=== PATIENT | female | born 1965 | race Caucasian/White ===

== ENCOUNTER → 2021-02-20 | Outpatient (CLI) | payer OTHER ==
[~2021-02-20] MED LIST: CLINDAMYCIN HC300 MG PO; NKHM
== END | disposition home or self-care (01) ==
LOC: RESCLI 10:59
PROVIDERS: ATTEND Internal Medicine
DX: E66.9 Obesity, unspecified (principal); M19.90 Unspecified osteoarthritis, unspecified site; Z79.899 Other long term (current) drug therapy; Z98.890 Other specified postprocedural states

== ENCOUNTER → 2021-02-25 | Outpatient (CLI) | payer OTHER ==
[2021-02-25 06:32] LABS: BASO % 0.4 % (0.0-1.0); EOS # 0.3 10*3/uL (0.0-0.4); EOS % 3.5 % (1.0-4.0); LYMPH # 2.2 10*3/uL (1.3-4.4); LYMPH % 24.4 % (27.0-41.0); MEAN CELL VOLUME 99.8 fl (81.0-99.0); MEAN CORPUSCULAR HGB 32.4 pg (27.0-31.0); MEAN CORPUSCULAR HGB CONC 32.5 g/dl (33.0-37.0); MEAN PLATELET VOLUME 11.1 fl (9.6-12.3); MONO % 10.7 % (3.0-9.0); NEUT # 5.4 10*3/uL (2.3-7.9); NEUT % 60.6 % (47.0-73.0); PLATELET COUNT AUTOMATED 216 10*3/uL (130-400); RED BLOOD COUNT 5.21 10*6/uL (4.10-5.10); RED CELL DISTRI WIDTH 12.3 % (0-14.5); WHITE BLOOD COUNT 8.9 10*3/uL (4.8-10.8)
[2021-02-25 06:49] LABS: ALBUMIN 3.3 gm/dl (3.1-4.5); ALKALINE PHOSPHATASE 76 U/L (45-117); BUN 17 mg/dl (7-24); CHLORIDE 111 mmol/L (98-107); CHOLESTEROL 164 mg/dL (<200); CREATININE 0.91 mg/dL (0.55-1.02); LDL CHOLESTEROL 97 mg/dL (9-159); POTASSIUM 4.7 mmol/L (3.5-5.1); SGOT/AST 16 IU/L (3-35); SGPT/ALT 22 U/L (12-78); SODIUM 141 mmol/L (136-145); TOTAL PROTEIN 7.4 gm/dL (6.4-8.2); TRIGLYCERIDES 103 mg/dl (<150)
== END | disposition home or self-care (01) ==
LOC: LAB 05:38
PROVIDERS: ATTEND Internal Medicine
DX: E66.9 Obesity, unspecified (principal)

== ENCOUNTER → 2021-03-20 | Outpatient (CLI) | payer OTHER | END | disposition home or self-care (01) | LOC: ORTHO 00:48 | PROVIDERS: ATTEND Orthopaedic Surgery | DX: M17.0 Bilateral primary osteoarthritis of knee (principal) ==

== ENCOUNTER → 2021-07-16 | Outpatient (CLI) | payer OTHER ==
[2021-07-16 11:17] LABS: BASO # 0.1 10*3/uL (0.0-0.1); BASO % 0.6 % (0.0-1.0); EOS # 0.3 10*3/uL (0.0-0.4); HEMATOCRIT 51.9 % (37.0-47.0); LYMPH # 2.9 10*3/uL (1.3-4.4); MEAN CELL VOLUME 97.9 fl (81.0-99.0); MEAN CORPUSCULAR HGB 32.8 pg (27.0-31.0); MEAN CORPUSCULAR HGB CONC 33.5 g/dl (33.0-37.0); MEAN PLATELET VOLUME 11.1 fl (9.6-12.3); MONO # 1.1 10*3/uL (0.1-1.0); MONO % 10.9 % (3.0-9.0); NEUT # 5.6 10*3/uL (2.3-7.9); NEUT % 56.1 % (47.0-73.0); PLATELET COUNT AUTOMATED 215 10*3/uL (130-400); RED CELL DISTRI WIDTH 12.8 % (0-14.5); WHITE BLOOD COUNT 10.1 10*3/uL (4.8-10.8)
== END | disposition home or self-care (01) ==
LOC: RESCLI 01:04
PROVIDERS: Student in an Organized Health Care Education/Training Program; ATTEND Internal Medicine
DX: E66.01 Morbid (severe) obesity due to excess calories (principal); E55.9 Vitamin D deficiency, unspecified; M17.0 Bilateral primary osteoarthritis of knee; D75.1 Secondary polycythemia; R06.09 Other forms of dyspnea; Z79.899 Other long term (current) drug therapy; Z88.8 Allergy status to other drugs, medicaments and biological substances

== ENCOUNTER → 2022-02-15 | Outpatient (CLI) | payer OTHER ==
[2022-02-15 16:10] LABS: BASO # 0.1 10*3/uL (0.0-0.1); BASO % 0.7 % (0.0-1.0); EOS # 0.4 10*3/uL (0.0-0.4); EOS % 4.1 % (1.0-4.0); HEMATOCRIT 51.7 % (37.0-47.0); LYMPH # 3.1 10*3/uL (1.3-4.4); LYMPH % 28.6 % (27.0-41.0); MEAN CELL VOLUME 98.7 fl (81.0-99.0); MEAN CORPUSCULAR HGB 33.2 pg (27.0-31.0); MEAN CORPUSCULAR HGB CONC 33.7 g/dl (33.0-37.0); MEAN PLATELET VOLUME 10.7 fl (9.6-12.3); MONO # 1.2 10*3/uL (0.1-1.0); MONO % 10.9 % (3.0-9.0); NEUT # 5.9 10*3/uL (2.3-7.9); NEUT % 55.3 % (47.0-73.0); PLATELET COUNT AUTOMATED 260 10*3/uL (130-400); RED BLOOD COUNT 5.24 10*6/uL (4.10-5.10); RED CELL DISTRI WIDTH 12.7 % (0-14.5); WHITE BLOOD COUNT 10.7 10*3/uL (4.8-10.8)
[2022-02-15 16:30] LABS: BUN 12 mg/dl (7-24); CHLORIDE 110 mmol/L (98-107); CREATININE 0.89 mg/dL (0.55-1.02); SODIUM 141 mmol/L (136-145)
== END | disposition home or self-care (01) ==
LOC: LAB 14:59
PROVIDERS: ATTEND Student in an Organized Health Care Education/Training Program
DX: E88.81 Metabolic syndrome and other insulin resistance (principal); D75.1 Secondary polycythemia

== ENCOUNTER → 2022-09-01 | Outpatient (CLI) | payer OTHER | END | disposition home or self-care (01) | LOC: RESCLI 02:56 | PROVIDERS: ATTEND Internal Medicine | DX: E88.81 Metabolic syndrome and other insulin resistance (principal); M17.0 Bilateral primary osteoarthritis of knee; E59 Dietary selenium deficiency; D75.1 Secondary polycythemia; F17.210 Nicotine dependence, cigarettes, uncomplicated; Z98.890 Other specified postprocedural states; Z79.899 Other long term (current) drug therapy ==

== ENCOUNTER → 2023-10-19 | Outpatient (CLI) | payer OTHER | END | disposition home or self-care (01) | LOC: RESCLI 00:33 | PROVIDERS: ATTEND Internal Medicine | DX: E55.9 Vitamin D deficiency, unspecified (principal); E88.810 Metabolic syndrome; M17.0 Bilateral primary osteoarthritis of knee; E66.01 Morbid (severe) obesity due to excess calories; F17.210 Nicotine dependence, cigarettes, uncomplicated; R06.09 Other forms of dyspnea; Z79.899 Other long term (current) drug therapy; Z98.890 Other specified postprocedural states; Z82.49 Family history of ischemic heart disease and other diseases of the circulatory system ==

== ENCOUNTER → 2023-10-20 | Outpatient (CLI) | payer OTHER ==
[2023-10-20 11:15] LABS: BASO # 0.1 10*3/uL (0.0-0.1); BASO % 0.8 % (0.0-1.0); EOS # 0.3 10*3/uL (0.0-0.4); EOS % 2.7 % (1.0-4.0); HEMATOCRIT 54.3 % (37.0-47.0); LYMPH # 3.7 10*3/uL (1.3-4.4); LYMPH % 35.3 % (27.0-41.0); MEAN CELL VOLUME 100.6 fl (81.0-99.0); MEAN CORPUSCULAR HGB 33.3 pg (27.0-31.0); MEAN CORPUSCULAR HGB CONC 33.1 g/dl (33.0-37.0); MEAN PLATELET VOLUME 10.7 fl (9.6-12.3); MONO # 1.1 10*3/uL (0.1-1.0); MONO % 10.3 % (3.0-9.0); NEUT # 5.3 10*3/uL (2.3-7.9); NEUT % 50.4 % (47.0-73.0); PLATELET COUNT AUTOMATED 274 10*3/uL (130-400); RED CELL DISTRI WIDTH 12.9 % (0-14.5); WHITE BLOOD COUNT 10.6 10*3/uL (4.8-10.8)
[2023-10-20 11:42] LABS: ALKALINE PHOSPHATASE 70 U/L (46-116); BUN 13 mg/dl (9-23); CHLORIDE 104 mmol/L (98-107); CHOLESTEROL 195 mg/dL (<200); LDL CHOLESTEROL 113 mg/dL (9-159); POTASSIUM 4.2 mmol/L (3.4-5.1); SGPT/ALT 11 U/L (5-49); TRIGLYCERIDES 175 mg/dl (<150)
== END | disposition home or self-care (01) ==
LOC: LAB 09:20
PROVIDERS: ATTEND Student in an Organized Health Care Education/Training Program
DX: E55.9 Vitamin D deficiency, unspecified (principal); E66.01 Morbid (severe) obesity due to excess calories

== ENCOUNTER → 2023-11-22 | Outpatient (CLI) | payer OTHER ==
[~2023-11-22] MED LIST changes: +ALBUTEROL SULFAT4 M1 PO; +AUGMENTIN 500500 M1 PO; +CELEXA20 MG PO; +CITALOPRAM20 MG PO; +HYDROXYZINE PAM25 M1 PO; +IBU800 M2 PO; +LEVOFLOXACIN750 M2 PO; +METAMUCIL FIBE3.4 GM PO; +TRAMADOL HCL50 MG PO
[2023-11-22 14:31] LABS: BASO # 0.1 10*3/uL (0.0-0.1); BASO % 0.5 % (0.0-1.0); EOS # 0.3 10*3/uL (0.0-0.4); EOS % 3.2 % (1.0-4.0); HEMATOCRIT 49.2 % (37.0-47.0); LYMPH # 2.9 10*3/uL (1.3-4.4); LYMPH % 28.9 % (27.0-41.0); MEAN CELL VOLUME 98.4 fl (81.0-99.0); MEAN CORPUSCULAR HGB 32.6 pg (27.0-31.0); MEAN CORPUSCULAR HGB CONC 33.1 g/dl (33.0-37.0); MEAN PLATELET VOLUME 9.8 fl (9.6-12.3); MONO # 1.2 10*3/uL (0.1-1.0); MONO % 11.9 % (3.0-9.0); NEUT # 5.5 10*3/uL (2.3-7.9); NEUT % 55.1 % (47.0-73.0); PLATELET COUNT AUTOMATED 314 10*3/uL (130-400); RED CELL DISTRI WIDTH 14.4 % (0-14.5)
[2023-11-22 14:55] LABS: ALKALINE PHOSPHATASE 78 U/L (46-116); BUN 10 mg/dl (9-23); CHLORIDE 104 mmol/L (98-107); POTASSIUM 4.2 mmol/L (3.4-5.1); SGPT/ALT 9 U/L (5-49); TOTAL PROTEIN 7.9 gm/dL (6.0-8.0)
== END | disposition home or self-care (01) ==
LOC: RESCLI 02:06
PROVIDERS: ATTEND Internal Medicine
DX: T14.90XD Injury, unspecified, subsequent encounter (principal); M17.0 Bilateral primary osteoarthritis of knee; R06.09 Other forms of dyspnea; Z98.890 Other specified postprocedural states; F17.210 Nicotine dependence, cigarettes, uncomplicated; Z82.49 Family history of ischemic heart disease and other diseases of the circulatory system; Z79.899 Other long term (current) drug therapy; X58.XXXD Exposure to other specified factors, subsequent encounter

== ENCOUNTER → 2023-12-01 | Outpatient (CLI) | payer OTHER | END | disposition home or self-care (01) | LOC: WOUNDCARE 01:34 | PROVIDERS: ATTEND Nurse Practitioner Family | DX: M72.6 Necrotizing fasciitis (principal); L02.31 Cutaneous abscess of buttock; L03.317 Cellulitis of buttock; E55.9 Vitamin D deficiency, unspecified; M19.90 Unspecified osteoarthritis, unspecified site; E66.01 Morbid (severe) obesity due to excess calories; E44.0 Moderate protein-calorie malnutrition; Z68.42 Body mass index [BMI] 45.0-49.9, adult; Z87.891 Personal history of nicotine dependence; Z79.899 Other long term (current) drug therapy ==

== ENCOUNTER → 2023-12-08 | Outpatient (CLI) | payer OTHER ==
[2023-12-08 12:04] LABS: BASO # 0.1 10*3/uL (0.0-0.1); BASO % 0.7 % (0.0-1.0); EOS # 0.3 10*3/uL (0.0-0.4); EOS % 2.8 % (1.0-4.0); HEMATOCRIT 48.3 % (37.0-47.0); LYMPH # 2.8 10*3/uL (1.3-4.4); LYMPH % 27.3 % (27.0-41.0); MEAN CELL VOLUME 98.6 fl (81.0-99.0); MEAN CORPUSCULAR HGB 33.1 pg (27.0-31.0); MEAN CORPUSCULAR HGB CONC 33.5 g/dl (33.0-37.0); MEAN PLATELET VOLUME 10.2 fl (9.6-12.3); MONO # 1.4 10*3/uL (0.1-1.0); MONO % 13.9 % (3.0-9.0); NEUT # 5.6 10*3/uL (2.3-7.9); NEUT % 54.9 % (47.0-73.0); PLATELET COUNT AUTOMATED 273 10*3/uL (130-400); RED CELL DISTRI WIDTH 13.2 % (0-14.5); WHITE BLOOD COUNT 10.1 10*3/uL (4.8-10.8)
== END | disposition home or self-care (01) ==
LOC: WOUNDCARE 00:49 → LAB 01:59 → WOUNDCARE 01:59
PROVIDERS: ATTEND Nurse Practitioner Family
DX: M72.6 Necrotizing fasciitis (principal); L98.413 Non-pressure chronic ulcer of buttock with necrosis of muscle; L02.31 Cutaneous abscess of buttock; L03.317 Cellulitis of buttock; E55.9 Vitamin D deficiency, unspecified; M19.90 Unspecified osteoarthritis, unspecified site; E66.01 Morbid (severe) obesity due to excess calories; E44.0 Moderate protein-calorie malnutrition; Z68.42 Body mass index [BMI] 45.0-49.9, adult; Z87.891 Personal history of nicotine dependence; Z79.899 Other long term (current) drug therapy

== ENCOUNTER → 2023-12-12 | Outpatient (CLI) | payer OTHER | END | disposition home or self-care (01) | LOC: WOUNDCARE 12:30 | PROVIDERS: ATTEND Nurse Practitioner Family | DX: M72.6 Necrotizing fasciitis (principal); L98.413 Non-pressure chronic ulcer of buttock with necrosis of muscle; L02.31 Cutaneous abscess of buttock; L03.317 Cellulitis of buttock; E55.9 Vitamin D deficiency, unspecified; M19.90 Unspecified osteoarthritis, unspecified site; E66.01 Morbid (severe) obesity due to excess calories; E44.0 Moderate protein-calorie malnutrition; Z68.42 Body mass index [BMI] 45.0-49.9, adult; Z87.891 Personal history of nicotine dependence; Z79.899 Other long term (current) drug therapy ==

== ENCOUNTER → 2023-12-13 | Outpatient (CLI) | payer OTHER | END | disposition home or self-care (01) | LOC: WOUNDCARE 01:52 | PROVIDERS: ATTEND Nurse Practitioner Family | DX: M72.6 Necrotizing fasciitis (principal); L98.413 Non-pressure chronic ulcer of buttock with necrosis of muscle; L02.31 Cutaneous abscess of buttock; L03.317 Cellulitis of buttock; E55.9 Vitamin D deficiency, unspecified; M19.90 Unspecified osteoarthritis, unspecified site; E44.0 Moderate protein-calorie malnutrition; E66.01 Morbid (severe) obesity due to excess calories; Z68.42 Body mass index [BMI] 45.0-49.9, adult; Z87.891 Personal history of nicotine dependence; Z79.899 Other long term (current) drug therapy ==

== ENCOUNTER → 2023-12-14 | Outpatient (CLI) | payer OTHER | LOC: WOUNDCARE 01:54 | PROVIDERS: ATTEND Nurse Practitioner Family | DX: M72.6 Necrotizing fasciitis (principal); L98.413 Non-pressure chronic ulcer of buttock with necrosis of muscle; L02.31 Cutaneous abscess of buttock; L03.317 Cellulitis of buttock; E66.01 Morbid (severe) obesity due to excess calories; E44.0 Moderate protein-calorie malnutrition; M19.90 Unspecified osteoarthritis, unspecified site; Z87.891 Personal history of nicotine dependence; Z68.42 Body mass index [BMI] 45.0-49.9, adult ==

== ENCOUNTER → 2023-12-19 | Outpatient (CLI) | payer OTHER | END | disposition home or self-care (01) | LOC: WOUNDCARE 00:26 | PROVIDERS: ATTEND Nurse Practitioner Family | DX: M72.6 Necrotizing fasciitis (principal); L98.413 Non-pressure chronic ulcer of buttock with necrosis of muscle; L02.31 Cutaneous abscess of buttock; L03.317 Cellulitis of buttock; E55.9 Vitamin D deficiency, unspecified; M19.90 Unspecified osteoarthritis, unspecified site; E44.0 Moderate protein-calorie malnutrition; E66.01 Morbid (severe) obesity due to excess calories; Z68.42 Body mass index [BMI] 45.0-49.9, adult; Z87.891 Personal history of nicotine dependence; Z79.899 Other long term (current) drug therapy ==

== ENCOUNTER → 2023-12-20 | Outpatient (CLI) | payer OTHER | END | disposition home or self-care (01) | LOC: WOUNDCARE 02:11 → RESCLI 17:03 → WOUNDCARE 17:05 | PROVIDERS: ATTEND Nurse Practitioner Family | DX: M72.6 Necrotizing fasciitis (principal); L98.413 Non-pressure chronic ulcer of buttock with necrosis of muscle; L02.31 Cutaneous abscess of buttock; L03.317 Cellulitis of buttock; E55.9 Vitamin D deficiency, unspecified; M19.90 Unspecified osteoarthritis, unspecified site; E44.0 Moderate protein-calorie malnutrition; E66.01 Morbid (severe) obesity due to excess calories; Z68.42 Body mass index [BMI] 45.0-49.9, adult; Z87.891 Personal history of nicotine dependence; Z79.899 Other long term (current) drug therapy ==

== ENCOUNTER → 2023-12-23 | Outpatient (CLI) | payer OTHER | END | disposition home or self-care (01) | LOC: WOUNDCARE 03:29 | PROVIDERS: ATTEND Nurse Practitioner Family | DX: M72.6 Necrotizing fasciitis (principal); L98.413 Non-pressure chronic ulcer of buttock with necrosis of muscle; L02.31 Cutaneous abscess of buttock; L03.317 Cellulitis of buttock; E55.9 Vitamin D deficiency, unspecified; M19.90 Unspecified osteoarthritis, unspecified site; E44.0 Moderate protein-calorie malnutrition; E66.01 Morbid (severe) obesity due to excess calories; Z68.42 Body mass index [BMI] 45.0-49.9, adult; Z87.891 Personal history of nicotine dependence; Z79.899 Other long term (current) drug therapy ==

== ENCOUNTER 2023-12-26 11:07 | Emergency (ER) | payer OTHER ==
[~2023-12-26] VITALS: Wt 135.2 kg
[2023-12-26 12:01] LABS: BASO # 0.1 10*3/uL (0.0-0.1); BASO % 0.7 % (0.0-1.0); EOS # 0.3 10*3/uL (0.0-0.4); EOS % 3.4 % (1.0-4.0); HEMATOCRIT 51.3 % (37.0-47.0); LYMPH # 3.2 10*3/uL (1.3-4.4); MEAN CELL VOLUME 100.4 fl (81.0-99.0); MEAN CORPUSCULAR HGB 32.1 pg (27.0-31.0); MEAN PLATELET VOLUME 10.2 fl (9.6-12.3); MONO # 0.9 10*3/uL (0.1-1.0); MONO % 9.7 % (3.0-9.0); NEUT # 5.1 10*3/uL (2.3-7.9); NEUT % 52.9 % (47.0-73.0); PLATELET COUNT AUTOMATED 302 10*3/uL (130-400); RED BLOOD COUNT 5.11 10*6/uL (4.10-5.10); RED CELL DISTRI WIDTH 12.8 % (0-14.5); WHITE BLOOD COUNT 9.7 10*3/uL (4.8-10.8)
[2023-12-26 12:23] LABS: ALKALINE PHOSPHATASE 75 U/L (46-116); BUN 9 mg/dl (9-23); CHLORIDE 104 mmol/L (98-107); POTASSIUM 4.1 mmol/L (3.4-5.1); SGPT/ALT 9 U/L (5-49); TOTAL PROTEIN 7.5 gm/dL (6.0-8.0)
[2023-12-26] MEDS ORDERED: SODIUM CHLORIDE 0.9% 1,000 ML IV ONE (12:55)
[2023-12-26] MEDS ORDERED: IOHEXOL 300 MG/ML 100 ML VIAL IV ONE (13:10)
[2023-12-26] MEDS ORDERED: IOHEXOL 300 MG/ML 100 ML VIAL ONE (13:25)
[2023-12-26] MEDS ORDERED: Vancomycin Hydrochloride 250 ML IV ONE (15:55)
[2023-12-26] MEDS ORDERED: HYDROmorphONE Hydrochloride 0.5 MG/0.5 ML SYRINGE IV ONE (15:55)
[2023-12-26] MEDS ORDERED: Piperacillin Sodium/Tazobact 50 ML IV ONE (15:55)
== END 2023-12-26 17:41 | disposition short-term general hospital (02) ==
LOC: ED 11:07
PROVIDERS: Internal Medicine
DX: K60.3 Anal fistula (principal); M86.9 Osteomyelitis, unspecified; N82.8 Other female genital tract fistulae; K60.4 Rectal fistula; J45.909 Unspecified asthma, uncomplicated; F17.200 Nicotine dependence, unspecified, uncomplicated; Z88.6 Allergy status to analgesic agent; Z88.8 Allergy status to other drugs, medicaments and biological substances; Z90.89 Acquired absence of other organs; Z98.890 Other specified postprocedural states

== ENCOUNTER → 2023-12-26 | Outpatient (CLI) | payer OTHER | END | disposition home or self-care (01) | LOC: WOUNDCARE 03:55 | PROVIDERS: ATTEND Nurse Practitioner Family | DX: M72.6 Necrotizing fasciitis (principal); L98.413 Non-pressure chronic ulcer of buttock with necrosis of muscle; L02.31 Cutaneous abscess of buttock; L03.317 Cellulitis of buttock; E55.9 Vitamin D deficiency, unspecified; M19.90 Unspecified osteoarthritis, unspecified site; E44.0 Moderate protein-calorie malnutrition; E66.01 Morbid (severe) obesity due to excess calories; Z68.42 Body mass index [BMI] 45.0-49.9, adult; Z87.891 Personal history of nicotine dependence; Z79.899 Other long term (current) drug therapy ==

== ENCOUNTER → 2023-12-27 | Outpatient (CLI) | payer OTHER | END | disposition home or self-care (01) | LOC: RESCLI 01:27 | PROVIDERS: ATTEND Family Medicine | DX: M17.0 Bilateral primary osteoarthritis of knee (principal); R06.09 Other forms of dyspnea; E55.9 Vitamin D deficiency, unspecified; T14.90XD Injury, unspecified, subsequent encounter; M19.90 Unspecified osteoarthritis, unspecified site; Z98.890 Other specified postprocedural states; Z79.899 Other long term (current) drug therapy; Z82.49 Family history of ischemic heart disease and other diseases of the circulatory system; Z88.8 Allergy status to other drugs, medicaments and biological substances ==

== ENCOUNTER → 2023-12-28 | Outpatient (CLI) | payer OTHER | END | disposition home or self-care (01) | LOC: WOUNDCARE 01:38 | PROVIDERS: ATTEND Nurse Practitioner Family | DX: M72.6 Necrotizing fasciitis (principal); L02.31 Cutaneous abscess of buttock; L03.317 Cellulitis of buttock; L98.413 Non-pressure chronic ulcer of buttock with necrosis of muscle; E66.01 Morbid (severe) obesity due to excess calories; E44.0 Moderate protein-calorie malnutrition; M19.90 Unspecified osteoarthritis, unspecified site; Z87.891 Personal history of nicotine dependence; Z68.42 Body mass index [BMI] 45.0-49.9, adult ==

== ENCOUNTER → 2023-12-30 | Outpatient (CLI) | payer OTHER | END | disposition home or self-care (01) | LOC: WOUNDCARE 01:59 | PROVIDERS: ATTEND Nurse Practitioner Family | DX: M72.6 Necrotizing fasciitis (principal); L98.413 Non-pressure chronic ulcer of buttock with necrosis of muscle; L02.31 Cutaneous abscess of buttock; L03.317 Cellulitis of buttock; E55.9 Vitamin D deficiency, unspecified; M19.90 Unspecified osteoarthritis, unspecified site; E44.0 Moderate protein-calorie malnutrition; E66.01 Morbid (severe) obesity due to excess calories; Z68.42 Body mass index [BMI] 45.0-49.9, adult; Z87.891 Personal history of nicotine dependence; Z79.899 Other long term (current) drug therapy ==

== ENCOUNTER → 2024-01-02 | Outpatient (CLI) | payer OTHER | END | disposition home or self-care (01) | LOC: WOUNDCARE 00:28 | PROVIDERS: ATTEND Nurse Practitioner Family | DX: M72.6 Necrotizing fasciitis (principal); L98.413 Non-pressure chronic ulcer of buttock with necrosis of muscle; L02.31 Cutaneous abscess of buttock; L03.317 Cellulitis of buttock; E55.9 Vitamin D deficiency, unspecified; M19.90 Unspecified osteoarthritis, unspecified site; E44.0 Moderate protein-calorie malnutrition; E66.01 Morbid (severe) obesity due to excess calories; Z68.42 Body mass index [BMI] 45.0-49.9, adult; Z87.891 Personal history of nicotine dependence; Z79.899 Other long term (current) drug therapy ==

== ENCOUNTER → 2024-01-04 | Outpatient (CLI) | payer OTHER | END | disposition home or self-care (01) | LOC: WOUNDCARE 00:58 | PROVIDERS: ATTEND Nurse Practitioner Family | DX: M72.6 Necrotizing fasciitis (principal); L98.413 Non-pressure chronic ulcer of buttock with necrosis of muscle; L02.31 Cutaneous abscess of buttock; L03.317 Cellulitis of buttock; M19.90 Unspecified osteoarthritis, unspecified site; E55.9 Vitamin D deficiency, unspecified; E44.0 Moderate protein-calorie malnutrition; E66.01 Morbid (severe) obesity due to excess calories; Z68.42 Body mass index [BMI] 45.0-49.9, adult; Z87.891 Personal history of nicotine dependence; Z79.899 Other long term (current) drug therapy ==

== ENCOUNTER → 2024-01-06 | Outpatient (CLI) | payer OTHER | END | disposition home or self-care (01) | LOC: WOUNDCARE 00:19 | PROVIDERS: ATTEND Nurse Practitioner Family | DX: M72.6 Necrotizing fasciitis (principal); L98.413 Non-pressure chronic ulcer of buttock with necrosis of muscle; L02.31 Cutaneous abscess of buttock; L03.317 Cellulitis of buttock; M19.90 Unspecified osteoarthritis, unspecified site; E55.9 Vitamin D deficiency, unspecified; E44.0 Moderate protein-calorie malnutrition; E66.01 Morbid (severe) obesity due to excess calories; Z68.42 Body mass index [BMI] 45.0-49.9, adult; Z87.891 Personal history of nicotine dependence; Z79.899 Other long term (current) drug therapy ==

== ENCOUNTER → 2024-01-09 | Outpatient (CLI) | payer OTHER | END | disposition home or self-care (01) | LOC: WOUNDCARE 02:06 | PROVIDERS: ATTEND Nurse Practitioner Family | DX: M72.6 Necrotizing fasciitis (principal); L98.413 Non-pressure chronic ulcer of buttock with necrosis of muscle; L02.31 Cutaneous abscess of buttock; L03.317 Cellulitis of buttock; M19.90 Unspecified osteoarthritis, unspecified site; E55.9 Vitamin D deficiency, unspecified; E44.0 Moderate protein-calorie malnutrition; E66.01 Morbid (severe) obesity due to excess calories; Z68.42 Body mass index [BMI] 45.0-49.9, adult; Z87.891 Personal history of nicotine dependence; Z79.899 Other long term (current) drug therapy ==

== ENCOUNTER → 2024-01-11 | Outpatient (CLI) | payer OTHER | END | disposition home or self-care (01) | LOC: WOUNDCARE 01:29 | PROVIDERS: ATTEND Nurse Practitioner Family | DX: M72.6 Necrotizing fasciitis (principal); L98.413 Non-pressure chronic ulcer of buttock with necrosis of muscle; L03.317 Cellulitis of buttock; L02.31 Cutaneous abscess of buttock; E66.01 Morbid (severe) obesity due to excess calories; E44.0 Moderate protein-calorie malnutrition; M19.90 Unspecified osteoarthritis, unspecified site; Z87.891 Personal history of nicotine dependence; Z68.42 Body mass index [BMI] 45.0-49.9, adult ==

== ENCOUNTER → 2024-01-13 | Outpatient (CLI) | payer OTHER | END | disposition home or self-care (01) | LOC: WOUNDCARE 02:43 | PROVIDERS: ATTEND Nurse Practitioner Family | DX: M72.6 Necrotizing fasciitis (principal); L98.413 Non-pressure chronic ulcer of buttock with necrosis of muscle; L02.31 Cutaneous abscess of buttock; L03.317 Cellulitis of buttock; M19.90 Unspecified osteoarthritis, unspecified site; E55.9 Vitamin D deficiency, unspecified; E44.0 Moderate protein-calorie malnutrition; E66.01 Morbid (severe) obesity due to excess calories; Z68.42 Body mass index [BMI] 45.0-49.9, adult; Z87.891 Personal history of nicotine dependence; Z79.899 Other long term (current) drug therapy ==

== ENCOUNTER → 2024-01-16 | Outpatient (CLI) | payer OTHER | END | disposition home or self-care (01) | LOC: WOUNDCARE 02:48 | PROVIDERS: ATTEND Nurse Practitioner Family | DX: M72.6 Necrotizing fasciitis (principal); L98.413 Non-pressure chronic ulcer of buttock with necrosis of muscle; L02.31 Cutaneous abscess of buttock; L03.317 Cellulitis of buttock; M19.90 Unspecified osteoarthritis, unspecified site; E55.9 Vitamin D deficiency, unspecified; E44.0 Moderate protein-calorie malnutrition; E66.01 Morbid (severe) obesity due to excess calories; Z68.42 Body mass index [BMI] 45.0-49.9, adult; Z87.891 Personal history of nicotine dependence; Z79.899 Other long term (current) drug therapy ==

== ENCOUNTER → 2024-01-18 | Outpatient (CLI) | payer OTHER | END | disposition home or self-care (01) | LOC: WOUNDCARE 02:27 | PROVIDERS: ATTEND Nurse Practitioner Family | DX: M72.6 Necrotizing fasciitis (principal); L98.413 Non-pressure chronic ulcer of buttock with necrosis of muscle; L03.317 Cellulitis of buttock; L02.31 Cutaneous abscess of buttock; E66.01 Morbid (severe) obesity due to excess calories; E44.0 Moderate protein-calorie malnutrition; M19.90 Unspecified osteoarthritis, unspecified site; Z87.891 Personal history of nicotine dependence; Z68.42 Body mass index [BMI] 45.0-49.9, adult ==

== ENCOUNTER → 2024-01-20 | Outpatient (CLI) | payer OTHER | END | disposition home or self-care (01) | LOC: WOUNDCARE 03:08 | PROVIDERS: ATTEND Nurse Practitioner Family | DX: M72.6 Necrotizing fasciitis (principal); L98.413 Non-pressure chronic ulcer of buttock with necrosis of muscle; L02.31 Cutaneous abscess of buttock; L03.317 Cellulitis of buttock; M19.90 Unspecified osteoarthritis, unspecified site; E55.9 Vitamin D deficiency, unspecified; E44.0 Moderate protein-calorie malnutrition; E66.01 Morbid (severe) obesity due to excess calories; Z68.42 Body mass index [BMI] 45.0-49.9, adult; Z87.891 Personal history of nicotine dependence; Z79.899 Other long term (current) drug therapy ==

== ENCOUNTER → 2024-01-23 | Outpatient (CLI) | payer OTHER | END | disposition home or self-care (01) | LOC: WOUNDCARE 02:31 | PROVIDERS: ATTEND Nurse Practitioner Family | DX: M72.6 Necrotizing fasciitis (principal); L98.413 Non-pressure chronic ulcer of buttock with necrosis of muscle; L02.31 Cutaneous abscess of buttock; L03.317 Cellulitis of buttock; M19.90 Unspecified osteoarthritis, unspecified site; E55.9 Vitamin D deficiency, unspecified; E44.0 Moderate protein-calorie malnutrition; E66.01 Morbid (severe) obesity due to excess calories; Z68.42 Body mass index [BMI] 45.0-49.9, adult; Z87.891 Personal history of nicotine dependence; Z79.899 Other long term (current) drug therapy ==

== ENCOUNTER → 2024-01-24 | Outpatient (CLI) | payer OTHER | END | disposition home or self-care (01) | LOC: RESCLI 00:58 | PROVIDERS: ATTEND Student in an Organized Health Care Education/Training Program | DX: R42 Dizziness and giddiness (principal); E55.9 Vitamin D deficiency, unspecified; M17.0 Bilateral primary osteoarthritis of knee; R06.09 Other forms of dyspnea; T14.90XD Injury, unspecified, subsequent encounter; Z79.899 Other long term (current) drug therapy; Z98.890 Other specified postprocedural states; Z88.8 Allergy status to other drugs, medicaments and biological substances; Z82.49 Family history of ischemic heart disease and other diseases of the circulatory system ==

== ENCOUNTER → 2024-01-25 | Outpatient (CLI) | payer OTHER | END | disposition home or self-care (01) | LOC: WOUNDCARE 02:21 | PROVIDERS: ATTEND Nurse Practitioner Family | DX: M72.6 Necrotizing fasciitis (principal); L02.31 Cutaneous abscess of buttock; L03.317 Cellulitis of buttock; L98.413 Non-pressure chronic ulcer of buttock with necrosis of muscle; E66.01 Morbid (severe) obesity due to excess calories; E44.0 Moderate protein-calorie malnutrition; M19.90 Unspecified osteoarthritis, unspecified site; Z87.891 Personal history of nicotine dependence ==

== ENCOUNTER → 2024-01-27 | Outpatient (CLI) | payer OTHER | END | disposition home or self-care (01) | LOC: WOUNDCARE 01:35 | PROVIDERS: ATTEND Nurse Practitioner Family | DX: M72.6 Necrotizing fasciitis (principal); L98.413 Non-pressure chronic ulcer of buttock with necrosis of muscle; L02.31 Cutaneous abscess of buttock; L03.317 Cellulitis of buttock; M19.90 Unspecified osteoarthritis, unspecified site; E55.9 Vitamin D deficiency, unspecified; E44.0 Moderate protein-calorie malnutrition; E66.01 Morbid (severe) obesity due to excess calories; Z68.42 Body mass index [BMI] 45.0-49.9, adult; Z87.891 Personal history of nicotine dependence; Z79.899 Other long term (current) drug therapy ==

== ENCOUNTER → 2024-01-30 | Outpatient (CLI) | payer OTHER | END | disposition home or self-care (01) | LOC: WOUNDCARE 01:55 | PROVIDERS: ATTEND Nurse Practitioner Family | DX: M72.6 Necrotizing fasciitis (principal); L03.317 Cellulitis of buttock; L98.413 Non-pressure chronic ulcer of buttock with necrosis of muscle; L02.31 Cutaneous abscess of buttock; E66.01 Morbid (severe) obesity due to excess calories; E44.0 Moderate protein-calorie malnutrition; M19.90 Unspecified osteoarthritis, unspecified site; Z87.891 Personal history of nicotine dependence; Z68.42 Body mass index [BMI] 45.0-49.9, adult ==

== ENCOUNTER → 2024-02-01 | Outpatient (CLI) | payer OTHER | END | disposition home or self-care (01) | LOC: WOUNDCARE 02:09 | PROVIDERS: ATTEND Nurse Practitioner Family | DX: M72.6 Necrotizing fasciitis (principal); L98.413 Non-pressure chronic ulcer of buttock with necrosis of muscle; L02.31 Cutaneous abscess of buttock; L03.317 Cellulitis of buttock; M19.90 Unspecified osteoarthritis, unspecified site; E55.9 Vitamin D deficiency, unspecified; E44.0 Moderate protein-calorie malnutrition; E66.01 Morbid (severe) obesity due to excess calories; Z68.42 Body mass index [BMI] 45.0-49.9, adult; Z87.891 Personal history of nicotine dependence; Z79.899 Other long term (current) drug therapy ==

== ENCOUNTER → 2024-02-03 | Outpatient (CLI) | payer OTHER | LOC: WOUNDCARE 02-02 03:09 | PROVIDERS: ATTEND Nurse Practitioner Family | DX: M72.6 Necrotizing fasciitis (principal); L98.413 Non-pressure chronic ulcer of buttock with necrosis of muscle; L02.31 Cutaneous abscess of buttock; L03.317 Cellulitis of buttock; M19.90 Unspecified osteoarthritis, unspecified site; E55.9 Vitamin D deficiency, unspecified; E44.0 Moderate protein-calorie malnutrition; E66.01 Morbid (severe) obesity due to excess calories; Z68.42 Body mass index [BMI] 45.0-49.9, adult; Z87.891 Personal history of nicotine dependence; Z79.899 Other long term (current) drug therapy ==

== ENCOUNTER → 2024-02-24 | Outpatient (CLI) | payer OTHER | END | disposition home or self-care (01) | LOC: WOUNDCARE 02:16 | PROVIDERS: ATTEND Nurse Practitioner Family | DX: M72.6 Necrotizing fasciitis (principal); L02.31 Cutaneous abscess of buttock; L98.413 Non-pressure chronic ulcer of buttock with necrosis of muscle; L03.317 Cellulitis of buttock; E66.01 Morbid (severe) obesity due to excess calories; E44.0 Moderate protein-calorie malnutrition; M19.90 Unspecified osteoarthritis, unspecified site; Z87.891 Personal history of nicotine dependence; Z68.42 Body mass index [BMI] 45.0-49.9, adult ==

== ENCOUNTER → 2024-02-27 | Outpatient (CLI) | payer OTHER | END | disposition home or self-care (01) | LOC: WOUNDCARE 01:40 | PROVIDERS: ATTEND Nurse Practitioner Family | DX: M72.6 Necrotizing fasciitis (principal); L98.413 Non-pressure chronic ulcer of buttock with necrosis of muscle; L02.31 Cutaneous abscess of buttock; L03.317 Cellulitis of buttock; M19.90 Unspecified osteoarthritis, unspecified site; E55.9 Vitamin D deficiency, unspecified; E44.0 Moderate protein-calorie malnutrition; E66.01 Morbid (severe) obesity due to excess calories; Z68.42 Body mass index [BMI] 45.0-49.9, adult; Z87.891 Personal history of nicotine dependence; Z79.899 Other long term (current) drug therapy ==

== ENCOUNTER → 2024-02-28 | Outpatient (CLI) | payer OTHER | END | disposition home or self-care (01) | LOC: WOUNDCARE 02:12 | PROVIDERS: ATTEND Nurse Practitioner Family | DX: M72.6 Necrotizing fasciitis (principal); L98.413 Non-pressure chronic ulcer of buttock with necrosis of muscle; L02.31 Cutaneous abscess of buttock; L03.317 Cellulitis of buttock; E44.0 Moderate protein-calorie malnutrition; M19.90 Unspecified osteoarthritis, unspecified site; E66.01 Morbid (severe) obesity due to excess calories; Z87.891 Personal history of nicotine dependence; Z68.42 Body mass index [BMI] 45.0-49.9, adult ==

== ENCOUNTER → 2024-03-07 | Outpatient (CLI) | payer OTHER | END | disposition home or self-care (01) | LOC: WOUNDCARE 02:17 | PROVIDERS: ATTEND Nurse Practitioner Family | DX: M72.6 Necrotizing fasciitis (principal); L98.413 Non-pressure chronic ulcer of buttock with necrosis of muscle; L02.31 Cutaneous abscess of buttock; L03.317 Cellulitis of buttock; M19.90 Unspecified osteoarthritis, unspecified site; E55.9 Vitamin D deficiency, unspecified; E44.0 Moderate protein-calorie malnutrition; E66.01 Morbid (severe) obesity due to excess calories; Z68.42 Body mass index [BMI] 45.0-49.9, adult; Z87.891 Personal history of nicotine dependence; Z79.899 Other long term (current) drug therapy ==

== ENCOUNTER → 2024-03-09 | Outpatient (CLI) | payer OTHER | END | disposition home or self-care (01) | LOC: WOUNDCARE 03:50 | PROVIDERS: ATTEND Nurse Practitioner Family | DX: M72.6 Necrotizing fasciitis (principal); L98.413 Non-pressure chronic ulcer of buttock with necrosis of muscle; L02.31 Cutaneous abscess of buttock; L03.317 Cellulitis of buttock; M19.90 Unspecified osteoarthritis, unspecified site; E55.9 Vitamin D deficiency, unspecified; E44.0 Moderate protein-calorie malnutrition; E66.01 Morbid (severe) obesity due to excess calories; Z68.42 Body mass index [BMI] 45.0-49.9, adult; Z87.891 Personal history of nicotine dependence; Z79.899 Other long term (current) drug therapy ==

== ENCOUNTER → 2024-03-12 | Outpatient (CLI) | payer OTHER | END | disposition home or self-care (01) | LOC: WOUNDCARE 01:19 | PROVIDERS: ATTEND Nurse Practitioner Family | DX: M72.6 Necrotizing fasciitis (principal); L98.413 Non-pressure chronic ulcer of buttock with necrosis of muscle; L02.31 Cutaneous abscess of buttock; L03.317 Cellulitis of buttock; M19.90 Unspecified osteoarthritis, unspecified site; E55.9 Vitamin D deficiency, unspecified; E44.0 Moderate protein-calorie malnutrition; E66.01 Morbid (severe) obesity due to excess calories; Z68.42 Body mass index [BMI] 45.0-49.9, adult; Z87.891 Personal history of nicotine dependence; Z79.899 Other long term (current) drug therapy ==

== ENCOUNTER → 2024-03-14 | Outpatient (CLI) | payer OTHER | END | disposition home or self-care (01) | LOC: WOUNDCARE 01:41 | PROVIDERS: ATTEND Nurse Practitioner Family | DX: M72.6 Necrotizing fasciitis (principal); L98.413 Non-pressure chronic ulcer of buttock with necrosis of muscle; L02.31 Cutaneous abscess of buttock; L03.317 Cellulitis of buttock; M19.90 Unspecified osteoarthritis, unspecified site; E55.9 Vitamin D deficiency, unspecified; E44.0 Moderate protein-calorie malnutrition; E66.01 Morbid (severe) obesity due to excess calories; Z68.42 Body mass index [BMI] 45.0-49.9, adult; Z87.891 Personal history of nicotine dependence; Z79.899 Other long term (current) drug therapy ==

== ENCOUNTER → 2024-03-16 | Outpatient (CLI) | payer OTHER | LOC: WOUNDCARE 02:09 | PROVIDERS: ATTEND Nurse Practitioner Family | DX: M72.6 Necrotizing fasciitis (principal); L98.413 Non-pressure chronic ulcer of buttock with necrosis of muscle; L02.31 Cutaneous abscess of buttock; L03.317 Cellulitis of buttock; M19.90 Unspecified osteoarthritis, unspecified site; E55.9 Vitamin D deficiency, unspecified; E44.0 Moderate protein-calorie malnutrition; E66.01 Morbid (severe) obesity due to excess calories; Z68.42 Body mass index [BMI] 45.0-49.9, adult; Z87.891 Personal history of nicotine dependence; Z79.899 Other long term (current) drug therapy ==

== ENCOUNTER → 2024-03-19 | Outpatient (CLI) | payer OTHER | LOC: WOUNDCARE 01:22 | PROVIDERS: ATTEND Nurse Practitioner Family | DX: M72.6 Necrotizing fasciitis (principal); L02.31 Cutaneous abscess of buttock; L98.413 Non-pressure chronic ulcer of buttock with necrosis of muscle; L03.317 Cellulitis of buttock; E66.01 Morbid (severe) obesity due to excess calories; E44.0 Moderate protein-calorie malnutrition; M19.90 Unspecified osteoarthritis, unspecified site; Z87.891 Personal history of nicotine dependence; Z68.42 Body mass index [BMI] 45.0-49.9, adult ==

== ENCOUNTER → 2024-03-21 | Outpatient (CLI) | payer OTHER | END | disposition home or self-care (01) | LOC: WOUNDCARE 02:50 | PROVIDERS: ATTEND Nurse Practitioner Family | DX: M72.6 Necrotizing fasciitis (principal); L98.413 Non-pressure chronic ulcer of buttock with necrosis of muscle; L02.31 Cutaneous abscess of buttock; L03.317 Cellulitis of buttock; M19.90 Unspecified osteoarthritis, unspecified site; E55.9 Vitamin D deficiency, unspecified; E44.0 Moderate protein-calorie malnutrition; E66.01 Morbid (severe) obesity due to excess calories; Z68.42 Body mass index [BMI] 45.0-49.9, adult; Z87.891 Personal history of nicotine dependence; Z79.899 Other long term (current) drug therapy ==

== ENCOUNTER → 2024-03-23 | Outpatient (CLI) | payer OTHER | LOC: WOUNDCARE 01:21 | PROVIDERS: ATTEND Nurse Practitioner Family | DX: M72.6 Necrotizing fasciitis (principal); L98.413 Non-pressure chronic ulcer of buttock with necrosis of muscle; L02.31 Cutaneous abscess of buttock; L03.317 Cellulitis of buttock; M19.90 Unspecified osteoarthritis, unspecified site; E55.9 Vitamin D deficiency, unspecified; E44.0 Moderate protein-calorie malnutrition; E66.01 Morbid (severe) obesity due to excess calories; Z68.42 Body mass index [BMI] 45.0-49.9, adult; Z87.891 Personal history of nicotine dependence; Z79.899 Other long term (current) drug therapy ==

== ENCOUNTER → 2024-03-26 | Outpatient (CLI) | payer OTHER | END | disposition home or self-care (01) | LOC: WOUNDCARE 00:28 | PROVIDERS: ATTEND Nurse Practitioner Family | DX: M72.6 Necrotizing fasciitis (principal); L98.413 Non-pressure chronic ulcer of buttock with necrosis of muscle; L02.31 Cutaneous abscess of buttock; L03.317 Cellulitis of buttock; M19.90 Unspecified osteoarthritis, unspecified site; E55.9 Vitamin D deficiency, unspecified; E44.0 Moderate protein-calorie malnutrition; E66.01 Morbid (severe) obesity due to excess calories; Z68.42 Body mass index [BMI] 45.0-49.9, adult; Z87.891 Personal history of nicotine dependence; Z79.899 Other long term (current) drug therapy ==

== ENCOUNTER → 2024-03-30 | Outpatient (CLI) | payer OTHER | END | disposition home or self-care (01) | LOC: WOUNDCARE 00:25 | PROVIDERS: ATTEND Nurse Practitioner Family | DX: M72.6 Necrotizing fasciitis (principal); L98.413 Non-pressure chronic ulcer of buttock with necrosis of muscle; L02.31 Cutaneous abscess of buttock; L03.317 Cellulitis of buttock; M19.90 Unspecified osteoarthritis, unspecified site; J45.909 Unspecified asthma, uncomplicated; E88.810 Metabolic syndrome; E66.01 Morbid (severe) obesity due to excess calories; E44.0 Moderate protein-calorie malnutrition; Z68.42 Body mass index [BMI] 45.0-49.9, adult; Z87.891 Personal history of nicotine dependence; Z98.890 Other specified postprocedural states; Z79.899 Other long term (current) drug therapy ==

== ENCOUNTER → 2024-04-02 | Outpatient (CLI) | payer OTHER | END | disposition home or self-care (01) | LOC: WOUNDCARE 02:51 | PROVIDERS: ATTEND Nurse Practitioner Primary Care | DX: M72.6 Necrotizing fasciitis (principal); L02.31 Cutaneous abscess of buttock; L03.317 Cellulitis of buttock; L98.413 Non-pressure chronic ulcer of buttock with necrosis of muscle; M19.90 Unspecified osteoarthritis, unspecified site; J45.909 Unspecified asthma, uncomplicated; E88.810 Metabolic syndrome; E66.01 Morbid (severe) obesity due to excess calories; E44.0 Moderate protein-calorie malnutrition; Z68.42 Body mass index [BMI] 45.0-49.9, adult; Z79.899 Other long term (current) drug therapy; Z87.891 Personal history of nicotine dependence; Z98.890 Other specified postprocedural states ==

== ENCOUNTER → 2024-04-11 | Outpatient (CLI) | payer OTHER | END | disposition home or self-care (01) | LOC: WOUNDCARE 01:24 | PROVIDERS: ATTEND Nurse Practitioner Family | DX: M72.6 Necrotizing fasciitis (principal); L98.413 Non-pressure chronic ulcer of buttock with necrosis of muscle; L02.31 Cutaneous abscess of buttock; L03.317 Cellulitis of buttock; J45.909 Unspecified asthma, uncomplicated; E55.9 Vitamin D deficiency, unspecified; E88.810 Metabolic syndrome; M19.90 Unspecified osteoarthritis, unspecified site; E44.0 Moderate protein-calorie malnutrition; E66.01 Morbid (severe) obesity due to excess calories; Z68.42 Body mass index [BMI] 45.0-49.9, adult; Z79.899 Other long term (current) drug therapy; Z87.891 Personal history of nicotine dependence; Z98.890 Other specified postprocedural states ==

== ENCOUNTER → 2024-04-13 | Outpatient (CLI) | payer OTHER | LOC: WOUNDCARE 00:14 | PROVIDERS: ATTEND Nurse Practitioner Family | DX: M72.6 Necrotizing fasciitis (principal); L02.31 Cutaneous abscess of buttock; L03.317 Cellulitis of buttock; L98.413 Non-pressure chronic ulcer of buttock with necrosis of muscle; M19.90 Unspecified osteoarthritis, unspecified site; J45.909 Unspecified asthma, uncomplicated; E55.9 Vitamin D deficiency, unspecified; E88.810 Metabolic syndrome; E66.01 Morbid (severe) obesity due to excess calories; E44.0 Moderate protein-calorie malnutrition; Z68.42 Body mass index [BMI] 45.0-49.9, adult; Z87.891 Personal history of nicotine dependence; Z98.890 Other specified postprocedural states; Z79.899 Other long term (current) drug therapy ==

== ENCOUNTER → 2024-04-18 | Outpatient (CLI) | payer OTHER | END | disposition home or self-care (01) | LOC: WOUNDCARE 01:51 | PROVIDERS: ATTEND Nurse Practitioner Family | DX: M72.6 Necrotizing fasciitis (principal); L98.413 Non-pressure chronic ulcer of buttock with necrosis of muscle; L02.31 Cutaneous abscess of buttock; L03.317 Cellulitis of buttock; E44.0 Moderate protein-calorie malnutrition; M19.90 Unspecified osteoarthritis, unspecified site; E66.01 Morbid (severe) obesity due to excess calories; Z68.42 Body mass index [BMI] 45.0-49.9, adult; Z87.891 Personal history of nicotine dependence; Z98.890 Other specified postprocedural states; Z79.899 Other long term (current) drug therapy ==

== ENCOUNTER → 2024-04-20 | Outpatient (CLI) | payer OTHER | LOC: WOUNDCARE 00:11 | PROVIDERS: ATTEND Nurse Practitioner Family | DX: M72.6 Necrotizing fasciitis (principal); L02.31 Cutaneous abscess of buttock; L03.317 Cellulitis of buttock; L98.413 Non-pressure chronic ulcer of buttock with necrosis of muscle; E55.9 Vitamin D deficiency, unspecified; E88.810 Metabolic syndrome; M19.90 Unspecified osteoarthritis, unspecified site; E66.01 Morbid (severe) obesity due to excess calories; Z68.42 Body mass index [BMI] 45.0-49.9, adult; Z87.891 Personal history of nicotine dependence; Z98.890 Other specified postprocedural states ==

== ENCOUNTER → 2024-04-23 | Outpatient (CLI) | payer OTHER | END | disposition home or self-care (01) | LOC: WOUNDCARE | PROVIDERS: ATTEND Nurse Practitioner Family | DX: M72.6 Necrotizing fasciitis (principal); L02.31 Cutaneous abscess of buttock; L03.317 Cellulitis of buttock; L98.413 Non-pressure chronic ulcer of buttock with necrosis of muscle; M19.90 Unspecified osteoarthritis, unspecified site; E88.810 Metabolic syndrome; E44.0 Moderate protein-calorie malnutrition; E66.01 Morbid (severe) obesity due to excess calories; Z68.42 Body mass index [BMI] 45.0-49.9, adult; Z87.891 Personal history of nicotine dependence; Z98.890 Other specified postprocedural states; Z79.899 Other long term (current) drug therapy ==

== ENCOUNTER → 2024-04-24 | Outpatient (CLI) | payer OTHER | END | disposition home or self-care (01) | LOC: RESCLI 02:57 | PROVIDERS: ATTEND Student in an Organized Health Care Education/Training Program | DX: E55.9 Vitamin D deficiency, unspecified (principal); M17.0 Bilateral primary osteoarthritis of knee; R06.09 Other forms of dyspnea; E56.9 Vitamin deficiency, unspecified; Z98.890 Other specified postprocedural states; Z79.899 Other long term (current) drug therapy; Z88.8 Allergy status to other drugs, medicaments and biological substances ==

== ENCOUNTER → 2024-04-25 | Outpatient (CLI) | payer OTHER | END | disposition home or self-care (01) | LOC: WOUNDCARE 02:29 | PROVIDERS: ATTEND Nurse Practitioner Family | DX: M72.6 Necrotizing fasciitis (principal); L02.31 Cutaneous abscess of buttock; L03.317 Cellulitis of buttock; L98.413 Non-pressure chronic ulcer of buttock with necrosis of muscle; E88.810 Metabolic syndrome; R69 Illness, unspecified; E44.0 Moderate protein-calorie malnutrition; E66.01 Morbid (severe) obesity due to excess calories; Z68.42 Body mass index [BMI] 45.0-49.9, adult; Z79.899 Other long term (current) drug therapy; Z98.890 Other specified postprocedural states; Z87.891 Personal history of nicotine dependence; M19.90 Unspecified osteoarthritis, unspecified site ==

== ENCOUNTER → 2024-04-27 | Outpatient (CLI) | payer OTHER | END | disposition home or self-care (01) | LOC: WOUNDCARE 02:13 | PROVIDERS: ATTEND Nurse Practitioner Family | DX: M72.6 Necrotizing fasciitis (principal); L02.31 Cutaneous abscess of buttock; L03.317 Cellulitis of buttock; L98.413 Non-pressure chronic ulcer of buttock with necrosis of muscle; M19.90 Unspecified osteoarthritis, unspecified site; E88.810 Metabolic syndrome; E44.0 Moderate protein-calorie malnutrition; E66.01 Morbid (severe) obesity due to excess calories; Z68.42 Body mass index [BMI] 45.0-49.9, adult; Z87.891 Personal history of nicotine dependence; Z98.890 Other specified postprocedural states; Z79.899 Other long term (current) drug therapy ==

== ENCOUNTER → 2024-05-01 | Outpatient (CLI) | payer OTHER | END | disposition home or self-care (01) | LOC: WOUNDCARE 02:13 | PROVIDERS: ATTEND Nurse Practitioner Family | DX: M72.6 Necrotizing fasciitis (principal); L02.31 Cutaneous abscess of buttock; L03.317 Cellulitis of buttock; L98.413 Non-pressure chronic ulcer of buttock with necrosis of muscle; E88.810 Metabolic syndrome; M19.90 Unspecified osteoarthritis, unspecified site; E44.0 Moderate protein-calorie malnutrition; E66.01 Morbid (severe) obesity due to excess calories; Z68.42 Body mass index [BMI] 45.0-49.9, adult; Z87.891 Personal history of nicotine dependence; Z98.890 Other specified postprocedural states; Z79.899 Other long term (current) drug therapy ==

== ENCOUNTER → 2024-05-03 | Outpatient (CLI) | payer OTHER | END | disposition home or self-care (01) | LOC: WOUNDCARE 02:44 | PROVIDERS: ATTEND Nurse Practitioner Family | DX: M72.6 Necrotizing fasciitis (principal); L02.31 Cutaneous abscess of buttock; L98.413 Non-pressure chronic ulcer of buttock with necrosis of muscle; L03.317 Cellulitis of buttock; M19.90 Unspecified osteoarthritis, unspecified site; E88.810 Metabolic syndrome; E66.01 Morbid (severe) obesity due to excess calories; E44.0 Moderate protein-calorie malnutrition; Z68.42 Body mass index [BMI] 45.0-49.9, adult; Z87.891 Personal history of nicotine dependence; Z98.890 Other specified postprocedural states; Z79.899 Other long term (current) drug therapy ==

== ENCOUNTER → 2024-05-04 | Outpatient (CLI) | payer OTHER | END | disposition home or self-care (01) | LOC: WOUNDCARE 01:01 | PROVIDERS: ATTEND Nurse Practitioner Family | DX: M72.6 Necrotizing fasciitis (principal); L02.31 Cutaneous abscess of buttock; L03.317 Cellulitis of buttock; L98.413 Non-pressure chronic ulcer of buttock with necrosis of muscle; M19.90 Unspecified osteoarthritis, unspecified site; E88.810 Metabolic syndrome; E44.0 Moderate protein-calorie malnutrition; E66.01 Morbid (severe) obesity due to excess calories; Z68.42 Body mass index [BMI] 45.0-49.9, adult; Z87.891 Personal history of nicotine dependence; Z98.890 Other specified postprocedural states; Z79.899 Other long term (current) drug therapy ==

== ENCOUNTER → 2024-05-08 | Outpatient (CLI) | payer OTHER | END | disposition home or self-care (01) | LOC: WOUNDCARE 01:26 | PROVIDERS: ATTEND Nurse Practitioner Family | DX: M72.6 Necrotizing fasciitis (principal); L98.413 Non-pressure chronic ulcer of buttock with necrosis of muscle; L02.31 Cutaneous abscess of buttock; L03.317 Cellulitis of buttock; E88.810 Metabolic syndrome; M19.90 Unspecified osteoarthritis, unspecified site; E66.01 Morbid (severe) obesity due to excess calories; E44.0 Moderate protein-calorie malnutrition; Z68.42 Body mass index [BMI] 45.0-49.9, adult; Z87.891 Personal history of nicotine dependence; Z98.890 Other specified postprocedural states; Z79.899 Other long term (current) drug therapy ==

== ENCOUNTER → 2024-05-10 | Outpatient (CLI) | payer OTHER | END | disposition home or self-care (01) | LOC: WOUNDCARE 00:41 | PROVIDERS: ATTEND Nurse Practitioner Family | DX: M72.6 Necrotizing fasciitis (principal); L02.31 Cutaneous abscess of buttock; L98.413 Non-pressure chronic ulcer of buttock with necrosis of muscle; L03.317 Cellulitis of buttock; M19.90 Unspecified osteoarthritis, unspecified site; J45.909 Unspecified asthma, uncomplicated; E55.9 Vitamin D deficiency, unspecified; E88.810 Metabolic syndrome; E44.0 Moderate protein-calorie malnutrition; E66.01 Morbid (severe) obesity due to excess calories; Z68.42 Body mass index [BMI] 45.0-49.9, adult; Z87.891 Personal history of nicotine dependence; Z98.890 Other specified postprocedural states; Z79.899 Other long term (current) drug therapy ==

== ENCOUNTER → 2024-05-11 | Outpatient (CLI) | payer OTHER | END | disposition home or self-care (01) | LOC: WOUNDCARE 01:28 | PROVIDERS: ATTEND Nurse Practitioner Family | DX: M72.6 Necrotizing fasciitis (principal); L02.31 Cutaneous abscess of buttock; L03.317 Cellulitis of buttock; L98.413 Non-pressure chronic ulcer of buttock with necrosis of muscle; M19.90 Unspecified osteoarthritis, unspecified site; J45.909 Unspecified asthma, uncomplicated; E55.9 Vitamin D deficiency, unspecified; E66.01 Morbid (severe) obesity due to excess calories; E44.0 Moderate protein-calorie malnutrition; Z68.42 Body mass index [BMI] 45.0-49.9, adult; Z87.891 Personal history of nicotine dependence; Z98.890 Other specified postprocedural states; Z79.899 Other long term (current) drug therapy ==

== ENCOUNTER → 2024-05-14 | Outpatient (CLI) | payer OTHER | END | disposition home or self-care (01) | LOC: WOUNDCARE 02:28 | PROVIDERS: ATTEND Nurse Practitioner Family | DX: M72.6 Necrotizing fasciitis (principal); L02.31 Cutaneous abscess of buttock; L03.317 Cellulitis of buttock; L98.413 Non-pressure chronic ulcer of buttock with necrosis of muscle; M19.90 Unspecified osteoarthritis, unspecified site; J45.909 Unspecified asthma, uncomplicated; E55.9 Vitamin D deficiency, unspecified; E44.0 Moderate protein-calorie malnutrition; E66.01 Morbid (severe) obesity due to excess calories; Z68.42 Body mass index [BMI] 45.0-49.9, adult; Z87.891 Personal history of nicotine dependence; Z98.890 Other specified postprocedural states; Z79.899 Other long term (current) drug therapy ==

== ENCOUNTER → 2024-05-15 | Outpatient (CLI) | payer OTHER | END | disposition home or self-care (01) | LOC: WOUNDCARE 03:33 | PROVIDERS: ATTEND Nurse Practitioner Family | DX: M72.6 Necrotizing fasciitis (principal); L02.31 Cutaneous abscess of buttock; L03.317 Cellulitis of buttock; L98.413 Non-pressure chronic ulcer of buttock with necrosis of muscle; E88.810 Metabolic syndrome; E55.9 Vitamin D deficiency, unspecified; M19.90 Unspecified osteoarthritis, unspecified site; E44.0 Moderate protein-calorie malnutrition; E66.01 Morbid (severe) obesity due to excess calories; Z68.42 Body mass index [BMI] 45.0-49.9, adult; Z87.891 Personal history of nicotine dependence; Z98.890 Other specified postprocedural states; Z79.899 Other long term (current) drug therapy ==

== ENCOUNTER → 2024-05-21 | Outpatient (CLI) | payer OTHER | END | disposition home or self-care (01) | LOC: WOUNDCARE 00:20 | PROVIDERS: ATTEND Nurse Practitioner Family | DX: M72.6 Necrotizing fasciitis (principal); L02.31 Cutaneous abscess of buttock; L03.317 Cellulitis of buttock; L98.413 Non-pressure chronic ulcer of buttock with necrosis of muscle; M19.90 Unspecified osteoarthritis, unspecified site; E88.810 Metabolic syndrome; E44.0 Moderate protein-calorie malnutrition; E66.01 Morbid (severe) obesity due to excess calories; Z68.42 Body mass index [BMI] 45.0-49.9, adult; Z87.891 Personal history of nicotine dependence; Z98.890 Other specified postprocedural states; Z79.899 Other long term (current) drug therapy ==

== ENCOUNTER → 2024-05-23 | Outpatient (CLI) | payer OTHER | END | disposition home or self-care (01) | LOC: WOUNDCARE 01:36 | PROVIDERS: ATTEND Nurse Practitioner Family | DX: M72.6 Necrotizing fasciitis (principal); L02.31 Cutaneous abscess of buttock; L03.317 Cellulitis of buttock; L98.413 Non-pressure chronic ulcer of buttock with necrosis of muscle; E66.01 Morbid (severe) obesity due to excess calories; M19.90 Unspecified osteoarthritis, unspecified site; J45.909 Unspecified asthma, uncomplicated; E55.9 Vitamin D deficiency, unspecified; E88.9 Metabolic disorder, unspecified; Z68.42 Body mass index [BMI] 45.0-49.9, adult; Z98.890 Other specified postprocedural states; Z87.891 Personal history of nicotine dependence; Z79.899 Other long term (current) drug therapy ==

== ENCOUNTER → 2024-05-28 | Outpatient (CLI) | payer OTHER | END | disposition home or self-care (01) | LOC: WOUNDCARE 00:45 | PROVIDERS: ATTEND Nurse Practitioner Family | DX: M72.6 Necrotizing fasciitis (principal); L02.31 Cutaneous abscess of buttock; L03.317 Cellulitis of buttock; L98.413 Non-pressure chronic ulcer of buttock with necrosis of muscle; E88.810 Metabolic syndrome; E55.9 Vitamin D deficiency, unspecified; M19.90 Unspecified osteoarthritis, unspecified site; E44.0 Moderate protein-calorie malnutrition; E66.01 Morbid (severe) obesity due to excess calories; Z87.891 Personal history of nicotine dependence; Z68.42 Body mass index [BMI] 45.0-49.9, adult; Z98.890 Other specified postprocedural states; Z79.899 Other long term (current) drug therapy ==

== ENCOUNTER → 2024-06-04 | Outpatient (CLI) | payer OTHER | END | disposition home or self-care (01) | LOC: WOUNDCARE 01:20 | PROVIDERS: ATTEND Nurse Practitioner Family | DX: M72.6 Necrotizing fasciitis (principal); L02.31 Cutaneous abscess of buttock; L03.317 Cellulitis of buttock; L98.413 Non-pressure chronic ulcer of buttock with necrosis of muscle; E88.810 Metabolic syndrome; E55.9 Vitamin D deficiency, unspecified; M19.90 Unspecified osteoarthritis, unspecified site; E66.01 Morbid (severe) obesity due to excess calories; E44.0 Moderate protein-calorie malnutrition; Z68.42 Body mass index [BMI] 45.0-49.9, adult; Z87.891 Personal history of nicotine dependence; Z98.890 Other specified postprocedural states; Z79.899 Other long term (current) drug therapy ==

== ENCOUNTER → 2024-06-11 | Outpatient (CLI) | payer OTHER | END | disposition home or self-care (01) | LOC: WOUNDCARE 01:34 | PROVIDERS: ATTEND Nurse Practitioner Family | DX: M72.6 Necrotizing fasciitis (principal); L02.31 Cutaneous abscess of buttock; L03.317 Cellulitis of buttock; L98.413 Non-pressure chronic ulcer of buttock with necrosis of muscle; E88.810 Metabolic syndrome; E55.9 Vitamin D deficiency, unspecified; M19.90 Unspecified osteoarthritis, unspecified site; E66.01 Morbid (severe) obesity due to excess calories; E44.0 Moderate protein-calorie malnutrition; Z68.42 Body mass index [BMI] 45.0-49.9, adult; Z98.890 Other specified postprocedural states; Z87.891 Personal history of nicotine dependence; Z79.899 Other long term (current) drug therapy ==

== ENCOUNTER → 2024-06-18 | Outpatient (CLI) | payer OTHER | END | disposition home or self-care (01) | LOC: WOUNDCARE 02:21 | PROVIDERS: ATTEND Nurse Practitioner Family | DX: M72.6 Necrotizing fasciitis (principal); L02.31 Cutaneous abscess of buttock; L03.317 Cellulitis of buttock; L98.413 Non-pressure chronic ulcer of buttock with necrosis of muscle; E88.810 Metabolic syndrome; E55.9 Vitamin D deficiency, unspecified; M19.90 Unspecified osteoarthritis, unspecified site; E66.01 Morbid (severe) obesity due to excess calories; E44.0 Moderate protein-calorie malnutrition; Z68.42 Body mass index [BMI] 45.0-49.9, adult; Z98.890 Other specified postprocedural states; Z87.891 Personal history of nicotine dependence; Z79.899 Other long term (current) drug therapy ==

== ENCOUNTER → 2024-06-25 | Outpatient (CLI) | payer OTHER | END | disposition home or self-care (01) | LOC: WOUNDCARE 00:55 | PROVIDERS: ATTEND Nurse Practitioner Family | DX: M72.6 Necrotizing fasciitis (principal); L02.31 Cutaneous abscess of buttock; L03.317 Cellulitis of buttock; L98.413 Non-pressure chronic ulcer of buttock with necrosis of muscle; E88.810 Metabolic syndrome; E55.9 Vitamin D deficiency, unspecified; M19.90 Unspecified osteoarthritis, unspecified site; E44.0 Moderate protein-calorie malnutrition; E66.01 Morbid (severe) obesity due to excess calories; Z68.42 Body mass index [BMI] 45.0-49.9, adult; Z87.891 Personal history of nicotine dependence; Z98.890 Other specified postprocedural states; Z79.899 Other long term (current) drug therapy ==

== ENCOUNTER → 2024-07-02 | Outpatient (CLI) | payer OTHER | END | disposition home or self-care (01) | LOC: WOUNDCARE 00:55 | PROVIDERS: ATTEND Nurse Practitioner Family | DX: M72.6 Necrotizing fasciitis (principal); L98.413 Non-pressure chronic ulcer of buttock with necrosis of muscle; L02.31 Cutaneous abscess of buttock; L03.317 Cellulitis of buttock; M19.90 Unspecified osteoarthritis, unspecified site; E88.810 Metabolic syndrome; E55.9 Vitamin D deficiency, unspecified; E66.01 Morbid (severe) obesity due to excess calories; E44.0 Moderate protein-calorie malnutrition; Z68.42 Body mass index [BMI] 45.0-49.9, adult; Z87.891 Personal history of nicotine dependence; Z98.890 Other specified postprocedural states; Z79.899 Other long term (current) drug therapy ==

== ENCOUNTER → 2024-07-09 | Outpatient (CLI) | payer OTHER | END | disposition home or self-care (01) | LOC: WOUNDCARE 03:22 | PROVIDERS: ATTEND Nurse Practitioner Family | DX: M72.6 Necrotizing fasciitis (principal); L02.31 Cutaneous abscess of buttock; L03.317 Cellulitis of buttock; L98.413 Non-pressure chronic ulcer of buttock with necrosis of muscle; M19.90 Unspecified osteoarthritis, unspecified site; J45.909 Unspecified asthma, uncomplicated; E55.9 Vitamin D deficiency, unspecified; E88.810 Metabolic syndrome; E66.01 Morbid (severe) obesity due to excess calories; Z68.42 Body mass index [BMI] 45.0-49.9, adult; Z98.890 Other specified postprocedural states; Z87.891 Personal history of nicotine dependence; Z79.899 Other long term (current) drug therapy ==

== ENCOUNTER → 2024-07-24 | Outpatient (CLI) | payer OTHER | LOC: RESCLI 03:13 | PROVIDERS: ATTEND Internal Medicine | DX: M17.0 Bilateral primary osteoarthritis of knee (principal); R60.9 Edema, unspecified; E56.9 Vitamin deficiency, unspecified; E55.9 Vitamin D deficiency, unspecified ==

== ENCOUNTER → 2024-08-01 | Outpatient (CLI) | payer OTHER | END | disposition home or self-care (01) | LOC: WOUNDCARE 04:35 → CARD 09:30 → WOUNDCARE 09:30 → CARD 08-02 13:00 | PROVIDERS: ATTEND Family Medicine | DX: M72.6 Necrotizing fasciitis (principal); L02.31 Cutaneous abscess of buttock; L03.317 Cellulitis of buttock; L98.413 Non-pressure chronic ulcer of buttock with necrosis of muscle; M19.90 Unspecified osteoarthritis, unspecified site; E55.9 Vitamin D deficiency, unspecified; E88.810 Metabolic syndrome; E66.01 Morbid (severe) obesity due to excess calories; E44.0 Moderate protein-calorie malnutrition; Z68.42 Body mass index [BMI] 45.0-49.9, adult; Z87.891 Personal history of nicotine dependence; Z79.899 Other long term (current) drug therapy ==

== ENCOUNTER → 2024-08-14 | Outpatient (CLI) | payer OTHER | END | disposition home or self-care (01) | LOC: WOUNDCARE 02:26 | PROVIDERS: ATTEND Nurse Practitioner Family | DX: M72.6 Necrotizing fasciitis (principal); L98.413 Non-pressure chronic ulcer of buttock with necrosis of muscle; L02.31 Cutaneous abscess of buttock; L03.317 Cellulitis of buttock; E66.01 Morbid (severe) obesity due to excess calories; E44.0 Moderate protein-calorie malnutrition; Z68.42 Body mass index [BMI] 45.0-49.9, adult; M19.90 Unspecified osteoarthritis, unspecified site; E55.9 Vitamin D deficiency, unspecified; Z98.890 Other specified postprocedural states; Z87.891 Personal history of nicotine dependence; Z79.899 Other long term (current) drug therapy ==

== ENCOUNTER → 2024-08-28 | Outpatient (CLI) | payer OTHER | LOC: WOUNDCARE 00:35 | PROVIDERS: ATTEND Nurse Practitioner Family | DX: M72.6 Necrotizing fasciitis (principal); L98.413 Non-pressure chronic ulcer of buttock with necrosis of muscle; L02.31 Cutaneous abscess of buttock; L03.317 Cellulitis of buttock; E44.0 Moderate protein-calorie malnutrition; E55.9 Vitamin D deficiency, unspecified; M19.90 Unspecified osteoarthritis, unspecified site; E88.810 Metabolic syndrome; E66.01 Morbid (severe) obesity due to excess calories; Z68.42 Body mass index [BMI] 45.0-49.9, adult; Z87.891 Personal history of nicotine dependence; Z98.890 Other specified postprocedural states; Z79.899 Other long term (current) drug therapy ==

== ENCOUNTER → 2024-10-26 | Outpatient (CLI) | payer OTHER | LOC: WOUNDCARE 02:17 | PROVIDERS: ATTEND Nurse Practitioner Family | DX: L02.31 Cutaneous abscess of buttock (principal); M19.90 Unspecified osteoarthritis, unspecified site; E55.9 Vitamin D deficiency, unspecified; E66.01 Morbid (severe) obesity due to excess calories; Z87.891 Personal history of nicotine dependence; Z68.41 Body mass index [BMI] 40.0-44.9, adult; Z98.890 Other specified postprocedural states; Z79.899 Other long term (current) drug therapy ==

== ENCOUNTER → 2024-11-01 | Outpatient (CLI) | payer OTHER | END | disposition home or self-care (01) | LOC: WOUNDCARE 01:20 | PROVIDERS: ATTEND Nurse Practitioner Family | DX: L02.31 Cutaneous abscess of buttock (principal); M72.6 Necrotizing fasciitis; M19.90 Unspecified osteoarthritis, unspecified site; E55.9 Vitamin D deficiency, unspecified; E66.01 Morbid (severe) obesity due to excess calories; Z68.41 Body mass index [BMI] 40.0-44.9, adult; Z98.890 Other specified postprocedural states; Z87.891 Personal history of nicotine dependence; Z79.899 Other long term (current) drug therapy ==

== ENCOUNTER → 2024-11-15 | Outpatient (CLI) | payer OTHER | END | disposition home or self-care (01) | LOC: WOUNDCARE 02:46 | PROVIDERS: ATTEND Nurse Practitioner Family | DX: L02.31 Cutaneous abscess of buttock (principal); M19.90 Unspecified osteoarthritis, unspecified site; E55.9 Vitamin D deficiency, unspecified; E66.01 Morbid (severe) obesity due to excess calories; Z68.41 Body mass index [BMI] 40.0-44.9, adult; Z98.890 Other specified postprocedural states; Z87.891 Personal history of nicotine dependence; Z79.899 Other long term (current) drug therapy; M60.000 Infective myositis, unspecified right arm ==

== ENCOUNTER 2025-01-25 14:14 | Inpatient (IN) | payer OTHER ==
[~2025-01-25] VITALS: Ht 170.1 cm; Wt 119.7 kg
[2025-01-25 14:25] LABS: BILIRUBIN Negative (Negative); BLOOD 2+ (Negative); CLARITY Turbid (Clear); COLOR Yellow (Yellow); KETONE Trace (Negative); LEUKO ESTERASE 2+ (Negative); NITRITE Negative (Negative); PH 6.0 (4.5-8.0); SPECIFIC GRAVITY 1.020 (1.001-1.030); UROBILINOGEN 1.0 E.U./dl (0.0-1.0)
[2025-01-25 14:35] LABS: BACTERIA 2+; RBC 21-30 rbc/hpf (0-2); WBC TNTC wbc/hpf (0-5)
[2025-01-25 14:41] VITALS: BP 121/61
[2025-01-25 14:45] LABS: MEAN CELL VOLUME 100.4 fl (81.0-99.0); MEAN CORPUSCULAR HGB 33.1 pg (27.0-31.0); MEAN PLATELET VOLUME 10.8 fl (9.6-12.3); NUCLEATED RED BLOOD CELL 0.0 % (0.0-0.0); NUCLEATED RED BLOOD CELL 0.0 10*3/uL (0.0-0.0); PLATELET COUNT AUTOMATED 183 10*3/uL (130-400); RED CELL DISTRI WIDTH 13.0 % (0-14.5)
[2025-01-25] MEDS ORDERED: ACETAMINOPHEN 325 MG TAB PO ONE (14:45)
[2025-01-25] MEDS ORDERED: SODIUM CHLORIDE 0.9% 1,000 ML IV SCH ×2 (14:45→15:50)
[2025-01-25 14:47] LABS: MANUAL DIFF REFLEX YES
[2025-01-25 15:05] LABS: BUN 19 mg/dl (9-23)
[2025-01-25 15:08] LABS: PLATELET SUFFICIENCY NORMAL (NORMAL)
[2025-01-25 15:15] VITALS: BP 125/62
[2025-01-25] MEDS ORDERED: CHAIR CUSHION DEVICE ONE (15:42)
[2025-01-25] MEDS ORDERED: BISACODYL 10 MG SUPP R PRN (15:45)
[2025-01-25] MEDS ORDERED: Acetaminophen/Hydrocodone 5 MG/325 MG TABLET PO PRN (15:45)
[2025-01-25] MEDS ORDERED: Ondansetron Hydrochloride 4 MG/2 ML VIAL IV PRN (15:45)
[2025-01-25] MEDS ORDERED: ACETAMINOPHEN 650 MG SUPP R PRN (15:45)
[2025-01-25] MEDS ORDERED: TEMAZEPAM 15 MG CAP PO PRN (15:45)
[2025-01-25] MEDS ORDERED: BISACODYL 5 MG TAB PO PRN (15:45)
[2025-01-25] MEDS ORDERED: ACETAMINOPHEN 325 MG TAB PO PRN (15:45)
[2025-01-25] MEDS ORDERED: TYLENOL EXTRA500 M3 PO (15:51)
[2025-01-25] MEDS ORDERED: ARTHRITIS PAIN150 G1 T (15:52)
[2025-01-25] MEDS ORDERED: DULOXETINE HCL30 MG PO (15:53)
[2025-01-25] MEDS ORDERED: VITAMIN D350 MCG PO (15:53)
[2025-01-25] MEDS ORDERED: VENT7GM INH (15:54)
[2025-01-25] MEDS ORDERED: MULTIPLE VITAM1 EAC1 PO (15:54)
[2025-01-25 16:00] VITALS: BP 136/80
[2025-01-25] MEDS ORDERED: IBUPROFEN 800 MG TAB PO PRN (16:30)
[2025-01-25] MEDS ORDERED: DICLOFENAC SODIUM 100 GM TUBE T PRN ×2 (16:30→16:40)
[2025-01-25] MEDS ORDERED: SODIUM CHLORIDE 0.9% 500 ML IV ONE (19:45)
[2025-01-25 20:00] VITALS: BP 132/71
[2025-01-25] MEDS ORDERED: FLUTICASONE PROPIONATE Nasal 16 Gm spray NAS SCH (22:00)
[2025-01-26 02:45] VITALS: BP 156/43
[2025-01-26] MEDS ORDERED: Meropenem 500 MG IV SCH (04:00)
[2025-01-26 04:40] LABS: MANUAL DIFF REFLEX YES; MEAN CELL VOLUME 101.8 fl (81.0-99.0); MEAN CORPUSCULAR HGB 33.5 pg (27.0-31.0); MEAN PLATELET VOLUME 10.8 fl (9.6-12.3); NUCLEATED RED BLOOD CELL 0.0 % (0.0-0.0); NUCLEATED RED BLOOD CELL 0.0 10*3/uL (0.0-0.0); PLATELET COUNT AUTOMATED 150 10*3/uL (130-400); RED CELL DISTRI WIDTH 12.9 % (0-14.5)
[2025-01-26 05:02] LABS: BUN 15 mg/dl (9-23); LDL CHOLESTEROL 58 mg/dL (9-159); SGPT/ALT 50 U/L (5-49)
[2025-01-26 05:12] LABS: PLATELET SUFFICIENCY NORMAL (NORMAL)
[2025-01-26] MEDS ORDERED: Meropenem 50 ML IV SCH (06:00)
[2025-01-26 08:00] VITALS: BP 128/56
[2025-01-26] MEDS ORDERED: Meropenem 500 MG IV ONE (09:33)
[2025-01-26] MEDS ORDERED: MULTIVITAMIN 1 TAB TAB PO SCH (10:00)
[2025-01-26] MEDS ORDERED: Cholecalciferol 2,000 UNIT TABLET (50 MCG) PO SCH (10:00)
[2025-01-26 12:00] VITALS: BP 118/64
[2025-01-26 16:00] VITALS: BP 126/62
[2025-01-26] MEDS ORDERED: GUAIFENESIN 10 ML UDC PO PRN (17:35)
[2025-01-26 20:00] VITALS: BP 121/66
[2025-01-26] MEDS ORDERED: Benzocaine/Menthol 1 LOZ LOZENGE PO PRN (21:15)
[2025-01-27] VITALS: BP 106/61
[2025-01-27 06:08] LABS: MEAN CELL VOLUME 103.1 fl (81.0-99.0); MEAN CORPUSCULAR HGB 32.9 pg (27.0-31.0); MEAN PLATELET VOLUME 10.9 fl (9.6-12.3); NUCLEATED RED BLOOD CELL 0.0 % (0.0-0.0); NUCLEATED RED BLOOD CELL 0.0 10*3/uL (0.0-0.0); PLATELET COUNT AUTOMATED 164 10*3/uL (130-400); RED CELL DISTRI WIDTH 12.8 % (0-14.5)
[2025-01-27 06:13] LABS: MANUAL DIFF REFLEX YES
[2025-01-27 06:31] LABS: BUN 12 mg/dl (9-23)
[2025-01-27 06:46] LABS: PLATELET SUFFICIENCY NORMAL (NORMAL)
[2025-01-27 08:00] VITALS: BP 140/73
[2025-01-27 12:00] VITALS: BP 127/76
[2025-01-27 16:00] VITALS: BP 133/77
[2025-01-27 20:00] VITALS: BP 116/71
[2025-01-28] VITALS: BP 114/60
[2025-01-28 06:26] LABS: MEAN CELL VOLUME 100.4 fl (81.0-99.0); MEAN CORPUSCULAR HGB 32.6 pg (27.0-31.0); MEAN PLATELET VOLUME 11.6 fl (9.6-12.3); NUCLEATED RED BLOOD CELL 0.0 % (0.0-0.0); NUCLEATED RED BLOOD CELL 0.0 10*3/uL (0.0-0.0); PLATELET COUNT AUTOMATED 206 10*3/uL (130-400); RED CELL DISTRI WIDTH 12.7 % (0-14.5)
[2025-01-28 06:27] LABS: BUN 14 mg/dl (9-23); MANUAL DIFF REFLEX YES; SGPT/ALT 77 U/L (5-49)
[2025-01-28 07:04] LABS: PLATELET SUFFICIENCY NORMAL (NORMAL)
[2025-01-28 08:00] VITALS: BP 149/77
[2025-01-28] MEDS ORDERED: LEVOFLOXACIN750 M2 PO (10:59)
[2025-01-28 11:43] VITALS: BP 119/75
== END 2025-01-28 11:52 | disposition home or self-care (01) | DRG 872 ==
LOC: ED 14:14 → 5E 15:27 → EDHOLD 15:27 → 5E 15:57
PROVIDERS: Emergency Medicine; Nurse Practitioner Family; ADMIT Student in an Organized Health Care Education/Training Program; ATTEND Student in an Organized Health Care Education/Training Program
DX: A41.9 Sepsis, unspecified organism (principal); N39.0 Urinary tract infection, site not specified; N12 Tubulo-interstitial nephritis, not specified as acute or chronic; E87.20 Acidosis, unspecified; J06.9 Acute upper respiratory infection, unspecified; R73.9 Hyperglycemia, unspecified; E55.9 Vitamin D deficiency, unspecified; J45.909 Unspecified asthma, uncomplicated; E66.01 Morbid (severe) obesity due to excess calories; R65.20 Severe sepsis without septic shock; E78.1 Pure hyperglyceridemia; Z88.8 Allergy status to other drugs, medicaments and biological substances; Z79.899 Other long term (current) drug therapy

== ENCOUNTER → 2025-02-05 | Outpatient (CLI) | payer OTHER ==
[~2025-02-05] MED LIST changes: +ARTHRITIS PAIN150 G1 T; +DULOXETINE HCL30 MG PO; +MULTIPLE VITAM1 EAC1 PO; +TYLENOL EXTRA500 M3 PO; +VENT7GM INH; +VITAMIN D350 MCG PO
== END | disposition home or self-care (01) ==
LOC: RESCLI 03:05
PROVIDERS: ATTEND Internal Medicine
DX: N39.0 Urinary tract infection, site not specified (principal); R06.09 Other forms of dyspnea; M17.0 Bilateral primary osteoarthritis of knee; E56.9 Vitamin deficiency, unspecified; E55.9 Vitamin D deficiency, unspecified; I50.30 Unspecified diastolic (congestive) heart failure; Z79.899 Other long term (current) drug therapy